=== PATIENT | female | born 1980 | race Caucasian/White ===

== ENCOUNTER 2020-09-05 16:54 | Emergency (ER) | payer OTHER ==
[~2020-09-05] VITALS: Ht 162.6 cm; Wt 61.2 kg
[2020-09-05] MEDS ORDERED: CEFTRIAXONE SOD 500 MG VIAL IM ONE (17:30)
[2020-09-05] MEDS ORDERED: DOXYCYCLINE HYCLATE TABLET 100 MG TAB PO ONE (17:30)
[2020-09-05] MEDS ORDERED: METRONIDAZOLE 500 MG TAB PO ONE (17:30)
[2020-09-05] MEDS ORDERED: ONDANSETRON HCL 4 MG ORAL DISINTEGRATING TAB PO ONE (17:30)
[2020-09-05] MEDS ORDERED: DOXYCYCLINE HY100 MG PO (19:43)
[2020-09-05 19:48] LABS: CLARITY,URINE CLEAR (CLEAR); COLOR,URINE YELLOW (YELLOW); KETONES,URINE NEGATIVE (NEGATIVE); LEUKOCYTE ESTERASE ,URINE NEGATIVE (NEGATIVE); NITRITE,URINE NEGATIVE (NEGATIVE); PROTEIN,URINE DIPSTICK NEGATIVE (NEGATIVE); URINE UROBILINOGEN 0.2 mg/dL (0.2 - 1)
[2020-09-05 19:51] LABS: BACTERIA,URINE FEW /HPF; EPITHELIAL CELLS,URINE MODERATE /LPF; WBC,URINE (MAN) 0-5 /HPF (0-5)
[2020-09-05 20:19] LABS: PREGNANCY TEST, URINE NEGATIVE (NEGATIVE)
[2020-09-05 20:34] VITALS: BP 133/62
== END 2020-09-05 20:35 | disposition home or self-care (01) ==
LOC: ER 17:44
DX: A64 Unspecified sexually transmitted disease (principal); R10.2 Pelvic and perineal pain; I10 Essential (primary) hypertension; G40.909 Epilepsy, unspecified, not intractable, without status epilepticus; F32.9 Major depressive disorder, single episode, unspecified; E28.2 Polycystic ovarian syndrome
CPT/HCPCS: 76830; 76856; 81001; 81025; 99284; J0696; Q0162